=== PATIENT | female | born 1945 | race Caucasian/White ===

== ENCOUNTER 2021-11-03 09:55 | Emergency (ER) | payer MEDICARE ==
[~2021-11-03] VITALS: Ht 167.7 cm; Wt 69.3 kg
--- NOTE | 2021-11-03 10:06 | ED General ---
General Stated Complaint: LT WRIST INJ History of Present Illness Date Seen by Provider: Nov 03, 2021 Time Seen by Provider: 10:06 Initial Comments 76-year-old female is here with complaints of left wrist pain after she sustained a fall by tripping on wire fencing outside. Patient states that she felt nauseous and lightheaded immediately after she fell. Patient does not recall hitting her head but she is unsure. Patient has 10/10 pain in her wrist. Denies headache, current dizziness, neck pain, blurry vision, sensory loss of left upper extremity Allergies and Home Medications Allergies Coded Allergies: No Known Drug Allergies (Unverified , 11/03/21) Patient Home Medication List Home Medication List Reviewed: Yes Oxycodone HCl/Acetaminophen (Percocet 5-325 mg Tablet) 1 Each Tablet, 1 TAB PO Q6H Prescribed by: YESENIA GILES MD on 11/03/21 2156 Review of Systems Review of Systems Constitutional: no symptoms reported EENTM: no symptoms reported Respiratory: no symptoms reported Cardiovascular: no symptoms reported Gastrointestinal: no symptoms reported Genitourinary: no symptoms reported Musculoskeletal: joint pain, joint swelling Skin: no symptoms reported Psychiatric/Neurological: See HPI Hematologic/Lymphatic: No Symptoms Reported Immunological/Allergic: no symptoms reported Physical Exam Vital Signs Vital Signs - First Documented 11/03/21 10:24 Temp 35.6 Pulse 56 Resp 20 B/P (MAP) 128/68 (88) Pulse Ox 97 O2 Delivery Room Air Capillary Refill : Height, Weight, BMI Height: '" Weight: lbs. oz. kg; BMI Method: General Appearance: Mild Distress HEENT: PERRL/EOMI, TMs Normal, Normal ENT Inspection Neck: Full Range of Motion, Normal Inspection, Non Tender, Supple Respiratory: Chest Non Tender, Lungs Clear Cardiovascular: Regular Rate, Rhythm Gastrointestinal: Non Tender, Soft Back: Normal Inspection, No CVA Tenderness, No Vertebral Tenderness Extremity: Other (LEFT UPPER EXTREMITY: Swelling of left wrist noted, tenderness to wrist present. Range of motion restricted due to pain and swelling. N/V bundle intact. 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 Skin: Normal Color Progress/Results/Core Measures Suspected Sepsis SIRS Temperature: Pulse: Respiratory Rate: Blood Pressure / Mean: Results/Orders My Orders Orders - YESENIA GILES MD Wrist 3 View Left (11/03/21 10:15) Ct Head Wo (11/03/21 10:16) Ketorolac Injection (Toradol Injection) (11/03/21 10:30) Medications Given in ED Current Medications Medications Dose Ordered Sig/Nilsa Route Start Time Stop Time Status Last Admin Dose Admin Ketorolac Tromethamine 30 mg ONCE ONCE IM 11/03/21 10:30 11/03/21 10:31 DC 11/03/21 10:40 30 MG Vital Signs/I&O 11/03/21 10:24 Temp 35.6 Pulse 56 Resp 20 B/P (MAP) 128/68 (88) Pulse Ox 97 O2 Delivery Room Air Capillary Refill : Progress Note : Progress Note 1. FALL: - CT HEAD: no acute findings 2. LEFT COLLE'S FRACTURE: - XR LEFT WRIST: see report - Toradol 30mg im: pt did not want any narcotics -Hematoma block with 1% lidocaine, 10 mL injected, manipulation of wrist for alignment of radius. Splint applied immediately. N/V bundle intact before and after manipulation. Sling given -Advised ibuprofen for mild to moderate pain and Percocet for severe pain -Ice application -Call Ortho clinic on Friday morning for appointment on Friday. Diagnostic Imaging Diagonstic Imaging: Xray, CT Plain Films/CT/US/NM/MRI: head, other Comments [facility] [place], [place] NAME: CLARYCRISTIANO Shahnaz [facility] REC#: [id number] PT STATUS: REG ER : 1945 PHYSICIAN: YESENIA GILES MD ADMIT DATE: 11/03/21/ER FS Signed Date of Exam:11/03/21 WRIST 3 VIEW LEFT CLINICAL HISTORY: Fall. Left wrist pain. COMPARISON: None. TECHNIQUE: 3 views of the left wrist. FINDINGS: Acute impacted and displaced fracture is seen involving the distal metaphysis of the left radius. No clear extension is seen into the left radiocarpal joint. No fracture is identified in the distal left ulna. The carpal bones demonstrate normal alignment. IMPRESSION: 1. Acute impacted and displaced fracture involving the distal metaphysis of the left radius. Dictated by: Dictated on workstation # [id number] Dict: 11/03/21 1038 Trans: 11/03/21 1123 [facility] [id number] Interpreted by: CARIDAD URBANO DO Electronically signed by: CARIDAD URBANO DO 11/03/21 1123 [facility], [place] NAME: CRISTIANO MEANS [facility] REC#: [id number] PT STATUS: REG ER : 1945 PHYSICIAN: YESENIA GILES MD ADMIT DATE: 11/03/21/ER FS Draft Date of Exam:11/03/21 CT HEAD WO EXAMINATION: CT head without contrast. TECHNIQUE: Multiple contiguous axial images were obtained through the brain without the use of intravenous contrast. All CT scans use one or more of the following dose optimizing techniques: automated exposure control, MA and/or KvP adjustment based on patient size and exam type or iterative reconstruction. HISTORY: Fall. Head pain. Nausea. COMPARISON: None available. FINDINGS: No large acute territorial ischemia, mass, or hemorrhage. No midline shift or mass effect. The ventricles, cortical sulci, and basilar cisterns are patent and unremarkable. The orbits are normal. Paranasal sinuses are normal. Mastoid air cells are clear. No soft tissue abnormality is seen. No osseus lesions or fractures are seen. IMPRESSION: 1. No large acute territorial ischemia, mass, or hemorrhage. Dictated on workstation # [id number] Dict: 11/03/21 1037 Trans: 11/03/21 1052 [facility] [id number] Interpreted by: CARIDDA URBANO DO Electronically signed by: Departure Impression Primary Impression: Colles' fracture of left radius, initial encounter for closed fracture Disposition: 01 HOME, SELF-CARE Condition: Improved Departure-Patient Inst. Referrals: HEIDE PACE MD (PCP) Primary Care Physician ONESIMO PALOMO MD Patient Instructions: How to Use a Shoulder Sling, Colles' Fracture (DC) Add. Discharge Instructions: -Advised ibuprofen for mild to moderate pain and Percocet for severe pain -Ice application -Call Ortho clinic on Friday morning for appointment on Friday. -[employer] Oxycodone HCl/Acetaminophen (Percocet 5-325 mg Tablet) 1 Each Tablet 1 TAB PO Q6H for PAIN-MODERATE MDD 6 TABS for 3 Days, #8 TAB Prov: YESENIA GILES MD 11/03/21 YESENIA GILES MD Nov 03, 2021 10:06
[2021-11-03] MEDS ORDERED: KETOROLAC 30 MG/ML VIAL IM ONE (10:30)
--- NOTE | 2021-11-03 10:52 | Diagnostic Imaging Report ---
EXAMINATION: CT head without contrast. TECHNIQUE: Multiple contiguous axial images were obtained through the brain without the use of intravenous contrast. All CT scans use one or more of the following dose optimizing techniques: automated exposure control, MA and/or KvP adjustment based on patient size and exam type or iterative reconstruction. HISTORY: Fall. Head pain. Nausea. COMPARISON: None available. FINDINGS: No large acute territorial ischemia, mass, or hemorrhage. No midline shift or mass effect. The ventricles, cortical sulci, and basilar cisterns are patent and unremarkable. The orbits are normal. Paranasal sinuses are normal. Mastoid air cells are clear. No soft tissue abnormality is seen. No osseus lesions or fractures are seen. IMPRESSION: 1. No large acute territorial ischemia, mass, or hemorrhage. Dictated by: Dictated on workstation # [id number]
--- NOTE | 2021-11-03 11:06 | Diagnostic Imaging Report ---
CLINICAL HISTORY: Fall. Left wrist pain. COMPARISON: None. TECHNIQUE: 3 views of the left wrist. FINDINGS: Acute impacted and displaced fracture is seen involving the distal metaphysis of the left radius. No clear extension is seen into the left radiocarpal joint. No fracture is identified in the distal left ulna. The carpal bones demonstrate normal alignment. IMPRESSION: 1. Acute impacted and displaced fracture involving the distal metaphysis of the left radius. Dictated by: Dictated on workstation # [id number]
[2021-11-03] MEDS ORDERED: OXYC1TAB87 PO (13:36)
[2021-11-03 14:00] VITALS: BP 157/81
== END 2021-11-03 14:00 | disposition home or self-care (01) ==
LOC: EDUNIT# 09:55 → ER FS 09:57
DX: S52.532A Colles' fracture of left radius, initial encounter for closed fracture (principal); W01.0XXA Fall on same level from slipping, tripping and stumbling without subsequent striking against object, initial encounter
CPT/HCPCS: 25605; 29125; 70450; 73110

== ENCOUNTER → 2021-12-05 | Outpatient (CLI) | payer MEDICARE ==
[~2021-12-05] MED LIST: OXYC1TAB87 PO
--- NOTE | 2021-12-05 11:35 | Diagnostic Imaging Report ---
CLINICAL HISTORY: Follow-up left wrist fracture. COMPARISON: 11/03/2021. TECHNIQUE: 2 views of the left wrist. FINDINGS: Interval surgical fixation of the distal left radius is visualized. There is near-anatomic alignment of the left radius. No new fractures are seen. No evidence of hardware complication. The carpal bones are well aligned. IMPRESSION: 1. Interval open reduction and internal fixation of the distal left radius. No malalignment or evidence of hardware complication. Dictated by: Dictated on workstation # [id number]
== END ==
LOC: RAD FS 09:00
PROVIDERS: ATTEND Nurse Practitioner
DX: S52.592D Other fractures of lower end of left radius, subsequent encounter for closed fracture with routine healing (principal); X58.XXXD Exposure to other specified factors, subsequent encounter
CPT/HCPCS: 73100

== ENCOUNTER → 2021-12-26 | Outpatient (CLI) | payer MEDICARE ==
--- NOTE | 2021-12-26 10:26 | Diagnostic Imaging Report ---
INDICATION: Fracture followup, post surgical followup. COMPARISON: 12/05/2021. TECHNIQUE: Two radiographs of the left wrist dated 12/26/2021. FINDINGS: Volar plate and screw fixation of the distal radius is again identified. No evidence of hardware complication. Very minimal sclerosis and minimal periosteal reaction are suggested involving the distal radius. No new fracture or dislocation. No destructive osseous process. No suspicious radiopaque foreign body. IMPRESSION: Internally fixated distal radial fracture demonstrating minimal healing without evidence of hardware complication or new acute osseous abnormality. Dictated by: Dictated on workstation # [id number]
== END ==
LOC: RAD FS 09:22
PROVIDERS: ATTEND Nurse Practitioner
DX: S52.592D Other fractures of lower end of left radius, subsequent encounter for closed fracture with routine healing (principal); X58.XXXD Exposure to other specified factors, subsequent encounter
CPT/HCPCS: 73100